=== PATIENT | male | born 1990 | race African-American/Black ===

== ENCOUNTER 2016-10-29 14:20 | Emergency (ER) | payer BC ==
[2016-10-29 16:03] VITALS: BP 135/78
--- NOTE | 2016-10-29 16:40 | RAD ---
HISTORY: Injury, lateral pain of the first digit MCP joint COMPARISONS: March 13, 2010 VIEWS: 3, Frontal, lateral, and oblique views of the first digit of the left hand FINDINGS: BONE DENSITY: Normal. BONES: There is no displaced fracture. JOINTS: There is no arthropathy. ALIGNMENT: There is no dislocation. SOFT TISSUES: Unremarkable. OTHER FINDINGS: None. IMPRESSION: NO ACUTE OSSEOUS INJURY. IF SYMPTOMS PERSIST, RECOMMEND REPEAT IMAGING.
--- NOTE | 2016-10-29 17:00 | UC ---
Hand/Wrist HPI - HPI Summary HPI Summary: Bent right thumb back playing flag football last week is concerned because it still hurts - History Of Current Complaint Chief Complaint: UCUpperExtremity Stated Complaint: THUMB INJURY Time Seen by Provider: 10/29/16 16:11 Hx Obtained From: Patient Mechanism Of Injury: bent back playing flag football last month Onset/Duration: Sudden Onset, Lasting Weeks - 1, Still Present Severity Initially: Mild Severity Currently: Mild Pain Intensity: 4 Pain Scale Used: 0-10 Numeric Character Of Pain: Aching Aggravating Factor(s): Movement Alleviating: Rest Associated Signs And Symptoms: Positive: Negative Related History: Dominant Hand Right - Allergies/Home Medications Allergies/Adverse Reactions: Allergies Allergy/AdvReac Type Severity Reaction Status Date / Time No Known Allergies Allergy Verified 10/29/16 16:03 Home Medications: Home Medications Anxiety Med* 10/29/16 [History] Cetirizine* [ZyrTEC*] 10/29/16 [History] PMH/Surg Hx/FS Hx/Imm Hx Previously Healthy: Yes - Surgical History Surgical History: Yes Surgery Procedure, Year, and Place: T&A - Family History Known Family History: Positive: None Family History: no cardiovascular issues in family lineage - Social History Occupation: Employed Full-time Lives: With Family Alcohol Use: Occasionally Substance Use Type: Marijuana Smoking Status (MU): Never Smoked Tobacco Review of Systems Constitutional: Negative Skin: Negative Eyes: Negative ENT: Negative Respiratory: Negative Cardiovascular: Negative Gastrointestinal: Negative Genitourinary: Negative Motor: Negative Neurovascular: Negative Musculoskeletal: Arthralgia - lateral right thumb mcp joint pain Neurological: Negative Psychological: Negative All Other Systems Reviewed And Are Negative: Yes Physical Exam Triage Information Reviewed: Yes Appearance: Well-Appearing, No Pain Distress, Well-Nourished Vital Signs: Initial Vital Signs Temp 98.4 F 10/29/16 16:01 Pulse 64 10/29/16 16:01 Resp 16 10/29/16 16:01 BP 135/78 10/29/16 16:01 Vital Signs Reviewed: Yes Eye Exam: Normal Eyes: Positive: Conjunctiva Clear ENT Exam: Normal ENT: Positive: Normal ENT inspection, Hearing grossly normal. Negative: Pharynx normal, Nasal congestion, Nasal drainage, TMs normal, Tonsillar swelling , Tonsillar exudate, Trismus, Muffled/hoarse voice Neck exam: Normal Neck: Positive: Supple, Nontender Respiratory Exam: Normal Respiratory: Positive: No respiratory distress, No accessory muscle use Cardiovascular Exam: Normal Cardiovascular: Positive: RRR, Pulses Normal, Brisk Capillary Refill Musculoskeletal Exam: Normal Musculoskeletal: Positive: Strength Intact, ROM Intact, No Edema, Other: - some discomfort with lateral stress Neurological Exam: Normal Neurological: Positive: Alert, Muscle Tone Normal Psychological Exam: Normal Skin Exam: Normal Diagnostics - Radiology No standard instances Xray Interpretation: No Acute Changes Radiology Interpretation Completed By: Radiologist Hand/Wrist Course/Dx - Course Course Of Treatment: ibuporofen, thumb spica, rice, follow with ortho - Differential Dx/Diagnosis Differential Diagnosis/HQI/PQRI: Contusion, Fracture, Sprain, Strain Provider Diagnoses: Right thumb sprain Discharge - Discharge Plan Condition: Stable Disposition: HOME Prescriptions: Ibuprofen TAB* [Motrin TAB* 600 MG] 600 mg PO Q6H PRN #40 tab PRN Reason: pain Patient Education Materials: Ibuprofen (By mouth), Finger Sprain (ED), RICE Therapy (ED) Referrals: Venice Kwok MD [Medical Doctor] - 3 Days
== END 2016-10-29 17:12 | disposition home or self-care (01) ==
LOC: UCEAST 14:20
DX: S63.601A Unspecified sprain of right thumb, initial encounter (principal); X50.1XXA Overexertion from prolonged static or awkward postures, initial encounter; Y93.62 Activity, american flag or touch football; Y92.9 Unspecified place or not applicable; F12.90 Cannabis use, unspecified, uncomplicated
CPT/HCPCS: 99212; G0463

== ENCOUNTER 2017-03-04 17:01 | Emergency (ER) | payer BC ==
[2017-03-04 17:08] VITALS: BP 129/82
== END 2017-03-04 18:18 | disposition left against medical advice (07) ==
LOC: UCEAST 17:01
DX: S05.90XA Unspecified injury of unspecified eye and orbit, initial encounter (principal); X58.XXXA Exposure to other specified factors, initial encounter; Y93.9 Activity, unspecified; Y92.9 Unspecified place or not applicable; Z53.21 Procedure and treatment not carried out due to patient leaving prior to being seen by health care provider

== ENCOUNTER 2017-08-24 21:54 | Emergency (ER) | payer SELFPAY ==
[2017-08-24 22:06] VITALS: BP 140/76
--- NOTE | 2017-08-24 23:26 | ED ---
Laceration/Wound HPI - HPI Summary HPI Summary: 27 male presents to ED with complaints of right thumb laceration that occurred tonight around 9pm. States he punched a window when the glass broke cutting his finger. Unable to stop bleeding, however is just oozing. Tetanus is UTD within last 5 years. Denies anticoagulant use. Has not taken any medication. Denies any other injuries. Some minor abrasion to other fingers that are not bleeding from injury. Denies any bony pain. Has FROM. No nail involvement. No other complaints. No PMHx. Right hand dominant. Denies numbness and tingling. - History of Current Complaint Stated Complaint: RT THUMB LAC Hx Obtained From: Patient Hx From Patient Unobtainable Due To: Altered Mental Status Onset/Duration: Sudden Onset, Lasting Hours, Still Present Aggravating: Movement Alleviating: Compression Timing: Constant Onset Severity: Moderate Current Severity: Moderate Pain Intensity: 7 Pain Scale Used: 0-10 Numeric Related Hx: Dominant Hand (Right) - Allergy/Home Medications Allergies/Adverse Reactions: Allergies Allergy/AdvReac Type Severity Reaction Status Date / Time No Known Allergies Allergy Verified 08/24/17 22:06 PMH/Surg Hx/FS Hx/Imm Hx Endocrine/Hematology History: Denies: Hx Anticoagulant Therapy, Hx Diabetes Cardiovascular History: Denies: Hx Hypertension Respiratory History: Denies: Hx Asthma - Surgical History Surgery Procedure, Year, and Place: T&A - Immunization History Date of Tetanus Vaccine: 2014 Immunizations Up to Date: Yes Infectious Disease History: No Infectious Disease History: Denies: Hx Clostridium Difficile, Hx Hepatitis, Hx Human Immunodeficiency Virus (HIV), Hx of Known/Suspected MRSA, Hx Shingles, Hx Tuberculosis, Hx Known/ Suspected VRE, Hx Known/Suspected VRSA, History Other Infectious Disease, Traveled Outside the [place] in Last 30 Days - Family History Known Family History: Positive: None Family History: no cardiovascular issues in family lineage - Social History Alcohol Use: None Substance Use Type: Reports: Marijuana Substance Use Comment - Amount & Last Used: daily Smoking Status (MU): Former Smoker Review of Systems Constitutional: Negative Cardiovascular: Negative Respiratory: Negative Musculoskeletal: Negative Positive: Other - laceration Neurological: Negative All Other Systems Reviewed And Are Negative: Yes Physical Exam Triage Information Reviewed: Yes Vital Signs On Initial Exam: Initial Vitals Temp Pulse Resp BP Pulse Ox 98.3 F 79 16 140/76 99 08/24/17 22:04 08/24/17 22:04 08/24/17 22:04 08/24/17 22:04 08/24/17 22:04 Vital Signs Reviewed: Yes Appearance: Positive: Well-Appearing, No Pain Distress, Well-Nourished Skin: Positive: Warm, Skin Color Reflects Adequate Perfusion, Dry, Other - small abrasion over dorsal fingers 2-3 of right hand. superficial skin avulsion of right thumb, dorsal side 1cm linear and minimal/oozing bleeding. no FB no bony or tendon involvment.. Negative: Cold, Cyanosis @, Pale, Erythema @ Head/Face: Positive: Normal Head/Face Inspection Neck: Positive: Supple Respiratory/Lung Sounds: Positive: Clear to Auscultation, Breath Sounds Present. Negative: Rales, Rhonchi, Wheezes Cardiovascular: Positive: Normal, RRR, Pulses are Symmetrical in both Upper and Lower Extremities - 2+ radial b/l. Negative: Murmur, Rub Musculoskeletal: Positive: Normal, Strength/ROM Intact, Other - no crepitus, step off, ecchymosis, obvious deformity or concern for bony trauma. Negative: Limited @, Interruption @, Abnormal @, Pain @, Lexy Sign Left, Edema Left, Edema Right Neurological: Positive: Normal, Sensory/Motor Intact, Alert, Oriented to Person Place, Time, CN Intact II-III, Reflexes Intact, NV Bundle Intact Distally, Normal Gait Procedures - Laceration/Wound Repair 1 Location: Other - skin avulsion right thumb Description: Linear Length, Depth and Shape: 1cm skin avulsion right thumb, dorsal side, superficial Laceration/Wound Explored: clean, no foreign body removed Closure: Skin Adhesive - surgicel and xeroform Sterile Dressing Applied?: Yes - surgicel, xeroform, telfa, coban Diagnostics - Vital Signs Vital Signs Temp Pulse Resp BP Pulse Ox 08/24/17 22:04 98.3 F 79 16 140/76 99 - Laboratory Lab Statement: Any lab studies that have been ordered have been reviewed, and results considered in the medical decision making process. Laceration Repair Course/Dx - Course Course Of Treatment: no evidence on PE of injury to MSK. no xray therefore obtained, had normal PE other than skin avulsion and minor abrasions. Skin avulsion right dorsal thumb, applied surgicel, xeroform, coban. Had relief. Continue dressing at home. Keep current dressing applied on for 24-48hours. Keep clean and dry. Aware of worsenig signs and symptoms. Tetanus is UTD. Instructed on how to remove and reapply dressing. Follow up with PCP. No other concerns at this time. - Differential Dx Differental Diagnoses: Abrasion, Avulsion, Laceration - Clinical Impression Provider Diagnoses: Avulsion of skin of thumb without complication Discharge - Discharge Plan Condition: Stable Disposition: HOME Patient Education Materials: Skin Avulsion (ED) Referrals: Charles Myers [facility] [Primary Care Provider] - Additional Instructions: Keep dressing on for 24-48hours. When removed be sure to wet dressing and gently remove. Gently rinse and dry. Apply new dressing as directed. Keep clean and dry. Apply triple antibiotic ointment. Any new or worsening symptoms such as infection please seek medical attention. Follow up with PCP for recheck.
== END 2017-08-25 00:29 | disposition home or self-care (01) ==
LOC: ED 21:54
DX: S61.011A Laceration without foreign body of right thumb without damage to nail, initial encounter (principal); W25.XXXA Contact with sharp glass, initial encounter; Y93.9 Activity, unspecified; Y92.9 Unspecified place or not applicable; F12.90 Cannabis use, unspecified, uncomplicated; Z87.891 Personal history of nicotine dependence
CPT/HCPCS: 12001; 99281